=== PATIENT | male | born 1995 | race Two or more races ===

== ENCOUNTER 2023-06-02 18:11 | Emergency (ER) | payer MEDICAID ==
[~2023-06-02] VITALS: Ht 182.9 cm; Wt 86.0 kg
[2023-06-02 20:02] LABS: COVID19 ANTIGEN SOFIA FIA NEGATIVE (NEGATIVE); Rapid Influenza A Negative (Negative); Rapid Influenza B Negative (Negative)
[2023-06-02] MEDS ORDERED: AZIT-43 PO (22:07)
[2023-06-02] MEDS ORDERED: ZOFR4T PO (22:07)
[2023-06-02] MEDS ORDERED: ACET500T58 PO (22:07)
[2023-06-03 07:00] VITALS: BP 124/79; PULSE 8; RESP 18; TEMP 99.1; O2SAT 94
== END 2023-06-02 22:07 | disposition home or self-care (01) ==
LOC: ER 18:11
DX: J06.9 Acute upper respiratory infection, unspecified (principal); Z20.822 Contact with and (suspected) exposure to COVID-19
CPT/HCPCS: 36415; 87426; 87804

== ENCOUNTER 2023-12-15 11:39 | Emergency (ER) | payer SELFPAY ==
[~2023-12-15] VITALS: Ht 182.9 cm; Wt 83.0 kg
[~2023-12-15 11:39] MED LIST: ACET500T58 PO; AZIT-43 PO; ZOFR4T PO
[2023-12-15 13:57] VITALS: BP 116/67; PULSE 72; RESP 17; TEMP 98.5; O2SAT 96
== END 2023-12-15 14:00 | disposition home or self-care (01) ==
LOC: ER 11:39
DX: M54.59 Other low back pain (principal); F12.90 Cannabis use, unspecified, uncomplicated; Z79.899 Other long term (current) drug therapy